=== PATIENT | female | born 1995 | race Caucasian/White ===

== ENCOUNTER 2018-10-18 16:20 | Emergency (ER) | payer SELFPAY | END 2018-10-18 17:20 | disposition left against medical advice (07) | LOC: ED 16:20 | DX: I10 Essential (primary) hypertension (principal); Z53.21 Procedure and treatment not carried out due to patient leaving prior to being seen by health care provider ==

== ENCOUNTER 2019-08-25 00:02 | Emergency (ER) | payer MEDICAID ==
[2019-08-25 00:12] VITALS: BP 144/86
[2019-08-25] MEDS ORDERED: IBUPROFEN 600 MG TAB PO ONE ×2 (03:18)
[2019-08-25] MEDS ORDERED: ACETAMINOPHEN W/CODEINE 300-30 MG TAB ONE (03:18)
[2019-08-25] MEDS ORDERED: ACETAMINOPHEN W/CODEINE 300-30 MG TAB PO ONE (03:18)
[2019-08-25] MEDS ORDERED: LIDOCAINE VISCOUS 2% 15 ML ORAL LIQD PO ONE (03:18)
[2019-08-25] MEDS ORDERED: LIDOCAINE VISCOUS 2% 15 ML ORAL LIQD ONE (03:18)
--- NOTE | 2019-08-25 03:18 | Emergency Department Report ---
ED ENT HPI - General Chief complaint: Dental/Oral Stated complaint: FACIAL SWELLING, TOOTHACHE Time Seen by Provider: 08/25/19 02:36 Source: patient Mode of arrival: Ambulatory Limitations: No Limitations - History of Present Illness Initial comments: The patient is a 24-year-old female who presents to ED complaining of 8/10 pain in the left side of her mouth x 4 days . Patient states that the pain started 4 days ago and has increased in severity over the last 2-3 days which she has noticed some swelling. The pain is exacerbated by eating and opening of the mouth. Patient states the pain is alleviated initially with pain medication but comes back. Patient states that it radiates towards ear. Patient describes a as a throbbing, pressure-like sensation. Patient states otherwise well and has no other complaints. Patient has had no fevers and no chills. No chest pain, no shortness of breath. No abdominal pain. No shortness of breath or recent trauma to the face. MD complaint: tooth pain - Related Data Previous Rx's Medication Instructions Recorded Last Taken Type Clindamycin [Clindamycin CAP] 300 mg PO Q8H #21 cap 08/25/19 Unknown Rx Ibuprofen [Motrin 800 MG tab] 800 mg PO Q8HR PRN #30 tablet 08/25/19 Unknown Rx Allergies Allergy/AdvReac Type Severity Reaction Status Date / Time No Known Allergies Allergy Unverified 10/18/18 16:27 ED Dental HPI - General Chief complaint: Dental/Oral Stated complaint: FACIAL SWELLING, TOOTHACHE Time Seen by Provider: 08/25/19 02:36 Source: patient Mode of arrival: Ambulatory Limitations: No Limitations - Related Data Previous Rx's Medication Instructions Recorded Last Taken Type Clindamycin [Clindamycin CAP] 300 mg PO Q8H #21 cap 08/25/19 Unknown Rx Ibuprofen [Motrin 800 MG tab] 800 mg PO Q8HR PRN #30 tablet 08/25/19 Unknown Rx Allergies Allergy/AdvReac Type Severity Reaction Status Date / Time No Known Allergies Allergy Unverified 10/18/18 16:27 ED Review of Systems ROS: Stated complaint: FACIAL SWELLING, TOOTHACHE Other details as noted in HPI Comment: All other systems reviewed and negative ED Past Medical Hx - Past Medical History Previous Medical History?: No - Surgical History Past Surgical History?: No - Social History Smoking Status: Current Every Day Smoker Substance Use Type: Alcohol - Medications Home Medications: Home Medications Medication Instructions Recorded Confirmed Last Taken Type Clindamycin [Clindamycin CAP] 300 mg PO Q8H #21 cap 08/25/19 Unknown Rx Ibuprofen [Motrin 800 MG tab] 800 mg PO Q8HR PRN #30 tablet 08/25/19 Unknown Rx ED Physical Exam - General Limitations: No Limitations General appearance: alert, in no apparent distress - Head Head exam: Present: atraumatic, normocephalic - Eye Eye exam: Present: normal appearance - ENT ENT exam: Present: mucous membranes moist - Expanded ENT Exam Expanded Teeth exam: Present: dental tenderness # (19, 20) Throat exam: Positive: normal inspection. Negative: tonsillar erythema, tonsillar exudate, R peritonsillar mass - Neck Neck exam: Present: normal inspection, full ROM. Absent: tenderness, lymphadenopathy - Respiratory Respiratory exam: Present: normal lung sounds bilaterally. Absent: respiratory distress - Cardiovascular Cardiovascular Exam: Present: regular rate, normal rhythm. Absent: systolic murmur, diastolic murmur, rubs, gallop - GI/Abdominal GI/Abdominal exam: Present: soft, normal bowel sounds - Extremities Exam Extremities exam: Present: normal inspection - Back Exam Back exam: Present: normal inspection - Neurological Exam Neurological exam: Present: alert, oriented X3, normal gait - Psychiatric Psychiatric exam: Present: normal affect, normal mood - Skin Skin exam: Present: warm, dry, intact, normal color. Absent: rash ED Course Vital Signs 08/25/19 08/25/19 00:07 03:03 Temperature 99.5 F Pulse Rate 110 H 86 Respiratory 20 17 Rate Blood Pressure 144/86 O2 Sat by Pulse 97 100 Oximetry ED Medical Decision Making - Medical Decision Making 24-year-old female who presents with left-sided Facial pain secondary to odontogenic caries ED course: Odontogenic infection versus ear infection. Based upon history and physical examination, pain is a result of an infection of tooth number 20 and that the pain Pt feels on the right side of his face and towards the ear is referred pain from this infectious process. Pt has no evidence of acute impending airway compromise. At this point, patient will be discharged home on some antibiotics and pain trial, she will do well with an outpatient course of antibiotics. Follow up with the Dental Clinic as referred Vital signs are normal patient is in no acute distress. Pt had an effect uneventful ED stay Critical care attestation.: If time is entered above; I have spent that time in minutes in the direct care of this critically ill patient, excluding procedure time. ED Disposition Clinical Impression: Pain, dental, Dental abscess Disposition: TO HOME OR SELFCARE Is pt being admited?: No Does the pt Need Aspirin: No Condition: Stable Instructions: Toothache (ED), Dental Abscess (ED), Dental Caries (ED) Additional Instructions: Make sure to follow up with the dentist n as discussed. Take all your medications as you've been prescribed. If you have any worsening symptoms or develop new symptoms please return to ED immediately. Referrals: PRIMARY CARE, [Primary Care Provider] - 3-5 Days [facility] [Outside] - 3-5 Days [facility] [Outside] - 3-5 Days [facility] [Outside] - 3-5 Days Forms: Accompanied Note, Work/School Release Form(ED) Time of Disposition: 03:19
== END 2019-08-25 03:30 | disposition home or self-care (01) ==
LOC: ED 00:02
DX: K04.7 Periapical abscess without sinus (principal); F17.200 Nicotine dependence, unspecified, uncomplicated
CPT/HCPCS: 99282

== ENCOUNTER 2021-11-19 03:39 | Emergency (ER) | payer SELFPAY ==
[2021-11-19 04:03] VITALS: BP 143/95
== END 2021-11-19 11:41 | disposition left against medical advice (07) ==
LOC: ED 03:39
DX: R11.0 Nausea (principal); M54.9 Dorsalgia, unspecified; Z53.21 Procedure and treatment not carried out due to patient leaving prior to being seen by health care provider